=== PATIENT | female | born 1985 | race African-American/Black ===

== ENCOUNTER 2017-10-16 10:33 | Inpatient (IN) | payer OTHER ==
[2017-10-16] MEDS ORDERED: MISOPROSTOL 200 MCG TAB PR ×2 (12:00→18:30)
[2017-10-16] MEDS ORDERED: METHYLERGONOVINE 0.2 MG INJ IM ×2 (12:00→18:30)
[2017-10-16] MEDS ORDERED: OXYTOCIN 30 UNITS/LR 500 ML IV ×2 (12:00→18:30)
[2017-10-16] MEDS ORDERED: CARBOPROST 250 MCG INJ IM ×2 (12:00→18:30)
[2017-10-16 12:11] LABS: ADD MAN DIFF? NO
[2017-10-16 12:15] LABS: BASOPHILS % 0.3 % (0.0-2.0); EOSINOPHILS # 0.1 10^3/ul (0.0-0.5); EOSINOPHILS % 0.8 % (0.0-7.0); HEMATOCRIT 29.4 % (37.0-47.0); HEMOGLOBIN 9.9 g/dl (12.0-16.0); LYMPHOCYTES # 1.9 10^3/ul (0.8-2.9); LYMPHOCYTES % 27.8 % (15.0-51.0); MEAN CORPUSCULAR HEMOGLOBIN 27.9 pg (29.0-33.0); MEAN CORPUSCULAR HGB CONC 33.7 g/dl (32.0-37.0); MEAN CORPUSCULAR VOLUME 82.8 fl (82.0-101.0); MEAN PLATELET VOLUME 9.7 fl (7.4-10.4); MONOCYTE # 0.7 10^3/ul (0.3-0.9); MONOCYTES % 10.1 % (0.0-11.0); NEUTROPHILS % 60.5 % (39.0-77.0); PLATELET COUNT 262 10^3/UL (140-415); RED BLOOD COUNT 3.55 10^6/ul (4.20-5.40); RED CELL DISTRIBUTION WIDTH 12.7 % (11.5-14.5)
[2017-10-16 12:15] LABS: WHITE BLOOD COUNT 6.7 10^3/ul (4.8-10.8)
[2017-10-16 12:37] LABS: PROTIME 13.3 Sec (11.9-14.9)
[2017-10-16 12:38] LABS: PARTIAL THROMBOPLASTIN TIME 26.5 Sec (25.0-35.0)
[2017-10-16 13:08] LABS: HEPATITIS B SURFACE ANTIGEN NEGATIVE (NEGATIVE)
[2017-10-16] MEDS: CEFAZOLIN 2 GM/50 ML (PMX) 50 ML IV ×2 (13:27→17:09)
[2017-10-16] MEDS ORDERED: KETOROLAC 30 MG INJ (13:30)
[2017-10-16] MEDS ORDERED: OXYTOCIN 10 UNIT INJ (13:30)
[2017-10-16] MEDS ORDERED: ONDANSETRON 4 MG INJ (13:30)
[2017-10-16] MEDS ORDERED: METOCLOPRAMIDE 10 MG INJ (13:30)
[2017-10-16] MEDS ORDERED: PHENYLephrine (100 MCG/ML) 5ML SYG (13:30)
[2017-10-16] MEDS ORDERED: DEXAMETHASONE 4 MG/ML 1 ML INJ (13:30)
[2017-10-16] MEDS ORDERED: morphine SULFATE/PF (10 MG/10 ML) INJ (13:30)
[2017-10-16] MEDS: OXYTOCIN 30 UNITS/LR 500 ML IV ×4 (14:30→22:25)
[2017-10-16] MEDS ORDERED: morphine 4 MG/ML VIAL IV (15:00)
[2017-10-16] MEDS ORDERED: DIPHENHYDRAMINE 50 MG INJ IV (15:00)
[2017-10-16] MEDS ORDERED: ONDANSETRON 4 MG INJ IV (15:00)
[2017-10-16] MEDS ORDERED: ACETAMINOPHEN 500 MG TAB PO (15:00)
[2017-10-16] MEDS ORDERED: HYDROCODONE/APAP (5/325) TAB PO (15:00)
[2017-10-16] MEDS ORDERED: NALOXONE (0.4 MG/ML) INJ IV (15:00)
[2017-10-16] MEDS ORDERED: HYDROmorphONE 0.5 MG/0.5 ML SYG IV ×2 (15:00)
[2017-10-16] MEDS ORDERED: NALBUPHINE HCL (10 MG/1 ML) INJ IV (15:00)
[2017-10-16] MEDS ORDERED: morphine 2 MG INJ IV (15:00)
[2017-10-16] MEDS ORDERED: KETOROLAC 30 MG INJ IV (15:00)
[2017-10-16] MEDS ORDERED: OXYCODONE/ACETAMINOPHEN (5/325) TAB PO ×2 (18:30)
[2017-10-16] MEDS: CEFAZOLIN 1 GM/50 ML (PMX) 50 ML IVPB ×2 (18:30→22:00)
[2017-10-16] MEDS: SENNA/DOCUSATE NA (8.6MG/50MG) TAB PO (21:00)
[2017-10-16 22:37] LABS: RAPID PLASMA REAGIN NONREACTIVE (NR)
[2017-10-17] MEDS: LACTATED RINGER'S 1,000 ML IV ×5 (00:30→21:15)
[2017-10-17] MEDS: OXYTOCIN 30 UNITS/LR 500 ML IV ×5 (02:49→21:17)
[2017-10-17 08:24] LABS: ADD MAN DIFF? NO
[2017-10-17 08:40] LABS: WHITE BLOOD COUNT 11.4 10^3/ul (4.8-10.8)
[2017-10-17 08:40] LABS: BASOPHILS % 0.3 % (0.0-2.0); EOSINOPHILS # 0.1 10^3/ul (0.0-0.5); EOSINOPHILS % 0.6 % (0.0-7.0); HEMATOCRIT 24.3 % (37.0-47.0); HEMOGLOBIN 8.1 g/dl (12.0-16.0); LYMPHOCYTES # 2.2 10^3/ul (0.8-2.9); LYMPHOCYTES % 19.1 % (15.0-51.0); MEAN CORPUSCULAR HEMOGLOBIN 27.6 pg (29.0-33.0); MEAN CORPUSCULAR HGB CONC 33.3 g/dl (32.0-37.0); MEAN CORPUSCULAR VOLUME 82.9 fl (82.0-101.0); MEAN PLATELET VOLUME 9.9 fl (7.4-10.4); MONOCYTE # 1.2 10^3/ul (0.3-0.9); MONOCYTES % 10.3 % (0.0-11.0); NEUTROPHIL # 7.9 10^3/ul (1.6-7.5); NEUTROPHILS % 69.3 % (39.0-77.0); PLATELET COUNT 213 10^3/UL (140-415); RED BLOOD COUNT 2.93 10^6/ul (4.20-5.40); RED CELL DISTRIBUTION WIDTH 12.6 % (11.5-14.5)
[2017-10-17] MEDS: SENNA/DOCUSATE NA (8.6MG/50MG) TAB PO ×2 (08:57→20:37)
[2017-10-17] MEDS: INFLUENZA VIRUS VACCINE 0.5 ML (DISPENSING) IM* (11:53)
[2017-10-17] MEDS: IBUPROFEN 600 MG TAB PO ×2 (17:49→17:50)
[2017-10-17 19:36] LABS: CANNABINOIDS Negative (NEGATIVE)
[2017-10-17 19:43] LABS: AMPHETAMINE/METHAMPHETAMINE Negative (NEGATIVE); BARBITURATES Negative (NEGATIVE); BENZODIAZEPINES Negative (NEGATIVE); COCAINE Negative (NEGATIVE); OPIATES Negative (NEGATIVE)
[2017-10-18] MEDS: IBUPROFEN 600 MG TAB PO ×5 (00:09→23:31)
[2017-10-18] MEDS: LACTATED RINGER'S 1,000 ML IV ×4 (01:08→23:00)
[2017-10-18] MEDS: OXYTOCIN 30 UNITS/LR 500 ML IV ×7 (01:08→23:38)
[2017-10-18] MEDS ORDERED: VITAMIN A & D 5 GM OINT PACKET TOP (01:24)
[2017-10-18] MEDS: SENNA/DOCUSATE NA (8.6MG/50MG) TAB PO ×2 (09:21→21:00)
[2017-10-18] MEDS: HYDROCODONE/APAP (5/325) TAB PO ×2 (11:22→20:34)
[2017-10-18] MEDS: NA PHOSPHATE/BIPHOS 133 ML ENEMA PR (14:34)
[2017-10-18] MEDS: LANOLIN 7 GM TUBE TOP (20:34)
[2017-10-19] MEDS: OXYTOCIN 30 UNITS/LR 500 ML IV ×2 (02:14→06:14)
[2017-10-19] MEDS: IBUPROFEN 600 MG TAB PO ×3 (05:56→18:05)
[2017-10-19] MEDS: LACTATED RINGER'S 1,000 ML IV (07:00)
[2017-10-19] MEDS: HYDROCODONE/APAP (5/325) TAB PO (08:36)
[2017-10-19] MEDS: SENNA/DOCUSATE NA (8.6MG/50MG) TAB PO (09:00)
[2017-10-19] MEDS: DIPHTH/TET/ACEL PERTUSS (ADULT) 0.5 ML VIAL IM* (09:00)
== END 2017-10-19 19:35 | disposition home or self-care (01) | DRG 765 ==
LOC: OBT 10:33 → L-D 10:33 → OBT 11:36 → L-D 11:30 → PP1 17:35
PROVIDERS: Obstetrics & Gynecology
PROC: 10D00Z1 Extraction of Products of Conception, Low, Open Approach (ICD-10-PCS; principal; 2017-10-16 14:00)
PROC: 3E033VJ Introduction of Other Hormone into Peripheral Vein, Percutaneous Approach (ICD-10-PCS; 2017-10-16 14:00)
DX: O34.211 Maternal care for low transverse scar from previous cesarean delivery (principal); O60.14X0 Preterm labor third trimester with preterm delivery third trimester, not applicable or unspecified; Z37.0 Single live birth; Z3A.36 36 weeks gestation of pregnancy
CPT/HCPCS: 80307; 85025; 85610; 85730; 86592; 86850; 86900; 86901; 87340; 90686; 90715; 94760; 99464

== ENCOUNTER 2017-10-23 10:38 | Emergency (ER) | payer OTHER ==
[2017-10-23 15:16] LABS: ADD UMIC YES; UR ASCORBIC ACID 40 mg/dL (NEGATIVE); UR BILIRUBIN (Dip) NEGATIVE (NEGATIVE); UR BLOOD (Dip) 3+ mg/dL (NEGATIVE); UR CLARITY SLIGHTLY CLOUDY (CLEAR); UR COLOR YELLOW (YELLOW); UR GLUCOSE (Dip) NEGATIVE (NEGATIVE); UR KETONES (Dip) NEGATIVE (NEGATIVE); UR LEUKOCYTE ESTERASE (Dip) 3+ Leu/ul (NEGATIVE); UR MUCUS MODERATE /HPF (NONE SEEN); UR NITRITE (Dip) NEGATIVE (NEGATIVE); UR RBC 25 /HPF (0-5); UR SPECIFIC GRAVITY (Dip) 1.015 (1.003-1.030); UR SQUAMOUS EPITHELIAL CELL FEW /HPF (FEW); UR TOTAL PROTEIN (Dip) NEGATIVE (NEGATIVE); UR UROBILINOGEN (Dip) NEGATIVE (NEGATIVE); UR WBC 19 /HPF (0-5)
[2017-10-23 15:19] LABS: ADD MAN DIFF? NO
[2017-10-23 15:20] LABS: WHITE BLOOD COUNT 5.2 10^3/ul (4.8-10.8)
[2017-10-23 15:20] LABS: BASOPHILS % 0.4 % (0.0-2.0); EOSINOPHILS # 0.1 10^3/ul (0.0-0.5); EOSINOPHILS % 2.3 % (0.0-7.0); HEMATOCRIT 27.8 % (37.0-47.0); HEMOGLOBIN 9.1 g/dl (12.0-16.0); LYMPHOCYTES # 1.6 10^3/ul (0.8-2.9); LYMPHOCYTES % 31.6 % (15.0-51.0); MEAN CORPUSCULAR HEMOGLOBIN 27.7 pg (29.0-33.0); MEAN CORPUSCULAR HGB CONC 32.7 g/dl (32.0-37.0); MEAN CORPUSCULAR VOLUME 84.5 fl (82.0-101.0); MEAN PLATELET VOLUME 8.6 fl (7.4-10.4); MONOCYTE # 0.5 10^3/ul (0.3-0.9); MONOCYTES % 8.9 % (0.0-11.0); NEUTROPHIL # 2.9 10^3/ul (1.6-7.5); NEUTROPHILS % 56.4 % (39.0-77.0); PLATELET COUNT 300 10^3/UL (140-415); RED BLOOD COUNT 3.29 10^6/ul (4.20-5.40); RED CELL DISTRIBUTION WIDTH 12.7 % (11.5-14.5)
[2017-10-23 15:35] LABS: INR 1.03; PROTIME 13.6 Sec (11.9-14.9); PT RATIO 1.1
[2017-10-23 15:37] LABS: ALANINE AMINOTRANSFERASE 77 IU/L (13-69); ALBUMIN 3.3 g/dl (3.3-4.9); ALBUMIN/GLOBULIN RATIO 1.13; ALKALINE PHOSPHATASE 78 IU/L (42-121); ANION GAP 12 (8-16); ASPARTATE AMINO TRANSFERASE 46 IU/L (15-46); BILIRUBIN,INDIRECT 0.1 mg/dl (0-1.1); BILIRUBIN,TOTAL 0.1 mg/dl (0.2-1.3); BLOOD UREA NITROGEN 10 mg/dl (7-20); CALCIUM 9.2 mg/dl (8.4-10.2); CARBON DIOXIDE 25 mmol/L (21-31); CHLORIDE 109 mmol/L (97-110); CREATININE 0.61 mg/dl (0.44-1.00); GLUCOSE 113 mg/dl (70-220); POTASSIUM 4.1 mmol/L (3.5-5.1); SODIUM 142 mmol/L (135-144); TOTAL PROTEIN 6.2 g/dl (6.1-8.1)
[2017-10-23] MEDS: NIFEdipine (XL) 30 MG TAB PO (17:16)
== END 2017-10-23 18:58 | disposition home or self-care (01) ==
LOC: FTE 10:38
DX: I10 Essential (primary) hypertension (principal); J18.9 Pneumonia, unspecified organism; N30.90 Cystitis, unspecified without hematuria; D64.9 Anemia, unspecified; F17.210 Nicotine dependence, cigarettes, uncomplicated; R07.9 Chest pain, unspecified
CPT/HCPCS: 36415; 71045; 80053; 81001; 85025; 85610; 85730; 93970; 99285-25